=== PATIENT | female | born 2000 | race Two or more races ===

== ENCOUNTER 2024-08-28 14:08 | Emergency (ER) | payer OTHER ==
[~2024-08-28] VITALS: Ht 160 cm; Wt 53.5 kg
[2024-08-28] MEDS ORDERED: IBUPROFEN 600 MG TABLET ONE (15:04)
[2024-08-28] MEDS: IBUPROFEN 600 MG TABLET PO ONE (15:06)
[2024-08-28 15:42] LABS: PREGNANCY TEST URINE QUAL NEGATIVE (NEGATIVE)
[2024-08-28] MEDS ORDERED: IBUP-1953 PO (16:13)
[2024-08-28 17:56] VITALS: BP 114/70; TEMP 98; O2SAT 98
== END 2024-08-28 17:56 | disposition home or self-care (01) ==
LOC: ER 14:15
DX: S16.1XXA Strain of muscle, fascia and tendon at neck level, initial encounter (principal); S46.912A Strain of unspecified muscle, fascia and tendon at shoulder and upper arm level, left arm, initial encounter; S80.02XA Contusion of left knee, initial encounter; F41.0 Panic disorder [episodic paroxysmal anxiety]; V89.2XXA Person injured in unspecified motor-vehicle accident, traffic, initial encounter; Y93.89 Activity, other specified; Y92.410 Unspecified street and highway as the place of occurrence of the external cause; Y99.8 Other external cause status
CPT/HCPCS: 72125-TC; 73030-TC; 73564-TC; 84703-TC